=== PATIENT | male | born 1945 | race Caucasian/White ===

== ENCOUNTER 2020-11-21 10:27 | Outpatient (CLI) | payer MEDICARE, OTHER ==
[~2020-11-21 10:27] MED LIST: ASPI81TA45 PO; ATOR-2 PO; LEVO100V8 PO; LOSA100T14 PO; METF-688 PO; NITR0.4T28 SL; TICA90TA PO
== END 2020-11-21 23:59 | disposition home or self-care (01) ==
LOC: CFH 10:27
PROVIDERS: ATTEND Internal Medicine Cardiovascular Disease
DX: I25.10 Atherosclerotic heart disease of native coronary artery without angina pectoris (principal)
CPT/HCPCS: 93306; 93356